=== PATIENT | male | born 1960 | race Caucasian/White ===

== ENCOUNTER 2018-02-15 13:27 | Emergency (ER) | payer SELFPAY ==
--- NOTE | 2018-02-15 13:29 | UC ---
General HPI - HPI Summary HPI Summary: 58 yo male presents requesting a refill for his zoloft. He tells me that he has been on zoloft 100mg QD for about 5 years through his PCP. 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 He called their office requesting a refill of his medication, but was told by their office that he was dropped as a pt due to an overdue bill. Pt was able to get an emergency 5 day supply from [facility] in order to continue taking his medication. He tells me that he was initially put on Zoloft when he was going through a divorce and was very depressed, but since starting the medication he feels great. Currently denies SI/HI, thoughts of harming himself or others, depression, or anxiety. - History of Current Complaint Stated Complaint: RX REFILL Time Seen by Provider: 02/15/18 13:29 Hx Obtained From: Patient - Allergy/Home Medications Allergies/Adverse Reactions: Allergies Allergy/AdvReac Type Severity Reaction Status Date / Time No Known Allergies Allergy Verified 02/15/18 13:37 PMH/Surg Hx/FS Hx/Imm Hx Psychological History: Depression - Surgical History Surgical History: None - Family History Known Family History: Positive: None - Social History Occupation: Employed Full-time Alcohol Use: Occasionally Substance Use Type: None Review of Systems Constitutional: Negative Skin: Negative Respiratory: Negative Cardiovascular: Negative Gastrointestinal: Negative Neurovascular: Negative Musculoskeletal: Negative Neurological: Negative Psychological: Negative All Other Systems Reviewed And Are Negative: Yes Physical Exam - Summary Physical Exam Summary: GENERAL: NAD. WDWN. No pain distress. SKIN: No rashes, sores, lesions, or open wounds. NECK: Supple. Nontender. No lymphadenopathy. CHEST: CTAB. No r/r/w. No accessory muscle use. Breathing comfortably and in no distress. CV: RRR. Without m/r/g. Pulses intact. Cap refill <2seconds ABDOMEN: Soft. NTTP. No distention or guarding. No CVA tenderness. Bowel sounds present NEURO: Alert. PSYCH: Age appropriate behavior. Triage Information Reviewed: Yes Vital Signs: Vital Signs: Temp Pulse Resp BP Pulse Ox 97.8 F 105 20 134/82 97 02/15/18 13:33 02/15/18 13:33 02/15/18 13:33 02/15/18 13:33 02/15/18 13:33 Vital Signs Reviewed: Yes Course/Dx - Course Course Of Treatment: Medication refill. Pt was provided information to schedule with a new PCP. - Differential Dx - Multi-Symptom Provider Diagnoses: Medication refill Discharge - Sign-Out/Discharge Documenting (check all that apply): Patient Departure All imaging exams completed and their final reports reviewed: No Studies - Discharge Plan Condition: Stable Disposition: HOME Prescriptions: Sertraline* [Zoloft*] 100 mg PO DAILY #90 tab Sertraline* [Zoloft*] 100 mg PO DAILY #5 tab Patient Education Materials: Sertraline (By mouth) Referrals: Max Birmingham MD [Medical Doctor] - Additional Instructions: If you develop a fever, shortness of breath, chest pain, new or worsening symptoms - please call your PCP or go to the ED. - Billing Disposition and Condition Condition: STABLE Disposition: Home
[2018-02-15 13:37] VITALS: BP 134/82
== END 2018-02-15 14:00 | disposition home or self-care (01) ==
LOC: UCEAST 13:27
DX: F32.9 Major depressive disorder, single episode, unspecified (principal); Z76.0 Encounter for issue of repeat prescription
CPT/HCPCS: 99202; G0463

== ENCOUNTER 2018-05-17 14:21 | Emergency (ER) | payer SELFPAY ==
[2018-05-17 14:51] VITALS: BP 139/96
--- NOTE | 2018-05-17 15:19 | UC ---
Psychiatric Complaint HPI - HPI Summary HPI Summary: 58-year-old male comes to clinic today with a chief complaint of having run out of his Zoloft. He's been treated for depression with Zoloft 100 mg once a day for several years. Overall he tells me his depression is stable he denies any suicidal ideation. At this time he has no health insurance and he is not have a primary care doctor. - History Of Current Complaint Chief Complaint: UCMedRefill Stated Complaint: MED REFILL Time Seen by Provider: 05/17/18 14:55 - Allergies/Home Medications Allergies/Adverse Reactions: Allergies Allergy/AdvReac Type Severity Reaction Status Date / Time No Known Allergies Allergy Verified 05/17/18 14:52 PMH/Surg Hx/FS Hx/Imm Hx Previously Healthy: Yes Psychological History: Depression - Surgical History Surgical History: None - Family History Known Family History: Positive: None - Social History Alcohol Use: Occasionally Substance Use Type: Prescribed Smoking Status (MU): Current Some Day Smoker Review of Systems All Other Systems Reviewed And Are Negative: Yes Constitutional: Positive: Negative Skin: Positive: Negative Eyes: Positive: Negative ENT: Positive: Negative Respiratory: Positive: Negative Cardiovascular: Positive: Negative Gastrointestinal: Positive: Negative Motor: Positive: Negative Neurovascular: Positive: Negative Musculoskeletal: Positive: Negative Neurological: Positive: Negative Psychological: Positive: Negative Is Patient Immunocompromised?: No Physical Exam Triage Information Reviewed: Yes Appearance: Well-Appearing, No Pain Distress, Well-Nourished Vital Signs: Initial Vital Signs Temp 98.8 F 05/17/18 14:48 Pulse 98 05/17/18 14:48 Resp 16 05/17/18 14:48 BP 139/96 05/17/18 14:48 Pulse Ox 100 05/17/18 14:48 Vital Signs Reviewed: Yes Eye Exam: Normal Eyes: Positive: Conjunctiva Clear Neck exam: Normal Neck: Positive: Supple Respiratory: Positive: Lungs clear, Normal breath sounds, No respiratory distress Cardiovascular: Positive: RRR Musculoskeletal Exam: Normal Musculoskeletal: Positive: Strength Intact, ROM Intact Neurological Exam: Normal Neurological: Positive: Alert, Muscle Tone Normal Psychological Exam: Normal Psychological: Positive: Age Appropriate Behavior Skin Exam: Normal Psych Complaint Course/Dx - Course Course Of Treatment: Patient denies any suicidal ideation. States is depressed and is stable. The plan is for him to get a primary care physician. Given the physician referral phone number for that. If he has any worsening of his symptoms he will seek medical care right away. - Differential Dx/Diagnosis Provider Diagnosis: Depression Discharge - Sign-Out/Discharge Documenting (check all that apply): Patient Departure All imaging exams completed and their final reports reviewed: No Studies - Discharge Plan Condition: Stable Disposition: HOME Prescriptions: Sertraline* [Zoloft*] 100 mg PO DAILY #90 tab Patient Education Materials: Depression (ED) Referrals: [facility] [place] [facility] [Outside] Additional Instructions: FOLLOW UP WITH YOUR DOCTOR. GET RECHECKED FOR ANY WORSENING OF YOUR CONDITION; DEPRESSION, ANXIETY, ANY THOUGHTS OF HURTING YOURSELF OR QUESTIONS OR CONCERNS. - Billing Disposition and Condition Condition: STABLE Disposition: Home
== END 2018-05-17 15:25 | disposition home or self-care (01) ==
LOC: UCEAST 14:21
DX: F32.9 Major depressive disorder, single episode, unspecified (principal); Z76.0 Encounter for issue of repeat prescription; Z72.0 Tobacco use
CPT/HCPCS: 99212; G0463

== ENCOUNTER 2019-06-15 10:55 | Emergency (ER) | payer SELFPAY ==
[2019-06-15 11:10] VITALS: BP 139/89
--- NOTE | 2019-06-15 12:09 | UC ---
General HPI - HPI Summary HPI Summary: patient requests refill on his sertraline. states he was given a year's supply 12 months ago here. has not seen PCP in over year. denies depression/anxiety or lethal ideation at this time and is actually considering if he needs med. - History of Current Complaint Chief Complaint: UCMedRefill Stated Complaint: MEDICATION REFILL Time Seen by Provider: 06/15/19 11:54 Hx Obtained From: Patient Current Severity: None - asymptomatic Pain Intensity: 0 - Allergy/Home Medications Allergies/Adverse Reactions: Allergies Allergy/AdvReac Type Severity Reaction Status Date / Time No Known Allergies Allergy Verified 06/15/19 11:11 PMH/Surg Hx/FS Hx/Imm Hx Previously Healthy: Yes Psychological History: Depression - Surgical History Surgical History: None - Family History Known Family History: Positive: None - Social History Occupation: Employed Full-time - travels Lives: Alone Alcohol Use: Occasionally Substance Use Type: Prescribed Smoking Status (MU): Current Some Day Smoker Cessation Counseling: Patient Advised to Stop Review of Systems All Other Systems Reviewed And Are Negative: Yes Constitutional: Positive: Negative Skin: Positive: Negative Respiratory: Positive: Negative Cardiovascular: Positive: Negative Gastrointestinal: Positive: Negative. Negative: Vomiting, Nausea Neurological: Positive: Negative. Negative: Headache Psychological: Positive: Negative, Depressed. Negative: Anxious Is Patient Immunocompromised?: No Physical Exam Triage Information Reviewed: Yes Appearance: Well-Appearing, No Pain Distress, Well-Nourished Vital Signs: Initial Vital Signs Temp 98.1 F 06/15/19 11:06 Pulse 80 06/15/19 11:06 Resp 12 06/15/19 11:06 BP 139/89 06/15/19 11:06 Pulse Ox 96 06/15/19 11:06 Vital Signs Reviewed: Yes Respiratory Exam: Normal Cardiovascular Exam: Normal Neurological Exam: Normal Neurological: Positive: Alert Psychological Exam: Normal Skin Exam: Normal Course/Dx - Differential Dx - Multi-Symptom Differential Diagnoses: Other - depression, anxiety - Diagnoses Provider Diagnosis: Medication refill Discharge ED - Sign-Out/Discharge Documenting (check all that apply): Patient Departure All imaging exams completed and their final reports reviewed: No Studies - Discharge Plan Condition: Good Disposition: HOME Prescriptions: Sertraline* [Zoloft*] 100 mg PO DAILY #30 tab Patient Education Materials: Sertraline (By mouth) Referrals: No Primary Care Phys,NOPCP [Primary Care Provider] - Additional Instructions: take sertraline as directed. report to ER for increasing feelings depression/anxiety Follow-up with your primary care provider for refills call Riya Mittal (the card we gave you) if you need help finding a primary care provider - Billing Disposition and Condition Condition: GOOD Disposition: Home - Attestation Statements Provider Attestation: I was available for consult. This patient was seen by the JUVENTINO. The patient was not presented to, seen by, or examined by me. -Michel
== END 2019-06-15 12:41 | disposition home or self-care (01) ==
LOC: UCEAST 10:55
DX: Z76.0 Encounter for issue of repeat prescription (principal); F17.200 Nicotine dependence, unspecified, uncomplicated
CPT/HCPCS: 99212; G0463